=== PATIENT | male | born 1980 | race Caucasian/White ===

== ENCOUNTER 2018-02-25 03:29 | Emergency (ER) | payer SELFPAY ==
[~2018-02-25] VITALS: Ht 177.8 cm; Wt 113.6 kg
[~2018-02-25 03:29] MED LIST: ASPI325T6 PO; COUMADIN 5MG5 MG/TAB PO; LOPRESSOR 550 MG/TAB PO; NO HOME MEDICATIONS; PRILOSEC 20MG20 MG PO; ZOCOR 40MG40 MG PO
[2018-02-25 03:39] VITALS: TEMP 98.2
[2018-02-25 03:54] LABS: BASO # 0.1 (0.0-0.2); BASO % 0.9 % (0.0-2.0); EOS # 0.2 (0.0-0.7); EOS % 1.8 % (0-4.0); GRAN # 3.9 (1.4-6.5); GRAN % 41.3 % (42.2-75.2); HEMATOCRIT 45.7 % (42.0-52.0); HEMOGLOBIN 15.4 g/dl (13.5-18.0); LYMPH # 3.9 (1.2-3.4); LYMPH % 40.8 % (20.0-51.0); MEAN CELL VOLUME 92 fl (80.0-100.0); MEAN CORPUSCULAR HEMOGLOBIN 31 pg (27.0-31.0); MEAN CORPUSCULAR HGB CONC 34 g/dl (33.0-37.0); MEAN PLATELET VOLUME 10.4 fl (7.4-10.4); MONO # 1.4 (0.1-0.6); MONO % 14.6 % (1.7-9.3); PLATELET COUNT 285 K/mm3 (130-400); RED BLOOD COUNT 4.96 M/mm3 (4.20-5.60); REDCELL DISTRIBUTION WIDTH-CV 12.9 % (11.5-14.5)
[2018-02-25 04:06] LABS: ALANINE AMINOTRANSFERASE 56 U/L (21-72); ALBUMIN 4.4 gm/dL (3.5-5.0); ALKALINE PHOSPHATASE 94 U/L (50-136); AST,SGOT 27 U/L (15-37); BILIRUBIN,TOTAL 0.3 mg/dL (0.0-1.0); BLOOD UREA NITROGEN 16 mg/dL (9-20); CALCIUM 9.4 mg/dL (8.4-10.2); CARBON DIOXIDE 25 mmol/L (22-30); CREATININE, serum 0.93 mg/dL (0.66-1.25); GLUCOSE 107 mg/dL (74-106); LIPASE 75 U/L (23-300); POTASSIUM 3.7 mmol/L (3.4-5.0); SODIUM 141 mmol/L (137-145); TOTAL PROTEIN 8.1 gm/dL (6.4-8.2)
[2018-02-25 04:08] LABS: ANION GAP 9 mmol/L (7-16); CHLORIDE 107 mmol/L (98-107)
[2018-02-25 04:46] LABS: TROPONIN-I < 0.012 ng/mL (0.000-0.034)
[2018-02-25] MEDS ORDERED: MEDROL 4MG DOSPA4 MG PO (04:58)
[2018-02-25 05:22] VITALS: BP 136/96; PULSE 76
== END 2018-02-25 05:44 | disposition home or self-care (01) ==
LOC: COL.ER 03:29
PROVIDERS: Emergency Medicine
DX: R07.81 Pleurodynia (principal); I48.91 Unspecified atrial fibrillation; F12.90 Cannabis use, unspecified, uncomplicated; Z79.82 Long term (current) use of aspirin
CPT/HCPCS: J1885; J2060; J7030